=== PATIENT | female | born 2005 | race African-American/Black ===

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

== ENCOUNTER 2024-01-24 11:30 | Emergency (ER) | payer SELFPAY ==
[~2024-01-24] VITALS: Ht 154.9 cm; Wt 56.7 kg
[2024-01-24 11:30] VITALS: O2SAT 99
[~2024-01-24 11:30] MED LIST changes: +DOXYCYCLINE HY100 MG PO
[2024-01-24] MEDS ORDERED: CEPHALEXIN500 MG PO (12:12)
[2024-01-24] MEDS ORDERED: AMOXICILLIN500 MG PO (12:15)
== END 2024-01-24 12:24 | disposition home or self-care (01) ==
LOC: FSED 11:56
DX: R59.1 Generalized enlarged lymph nodes (principal); L21.0 Seborrhea capitis
CPT/HCPCS: 99282